=== PATIENT | male | born 1995 | race Caucasian/White ===

== ENCOUNTER 2018-03-26 19:24 | Emergency (ER) | payer OTHER ==
[2018-03-26 19:35] VITALS: BP 108/60; PULSE 92; TEMP 98.4; BMI 19.1
[2018-03-26] MEDS ORDERED: PSEUDOEPHEDRINE HCL 60 MG TABLET PO ONE (19:38)
[2018-03-26] MEDS ORDERED: IBUPROFEN 400 MG TABLET (FP) PO ONE (19:39)
--- NOTE | 2018-03-26 19:41 | PDOC ---
History of Present Illness - General History Source: Patient Exam Limitations: No Limitations - History of Present Illness Initial Comments: 03/26/18 19:41 The patient is a 22-year-old male, with no significant past medical history, who presents to the ED with one day of sore throat and nasal congestion. The patient denies having any fever or cough. He reports taking 2-500mg amoxicillin tablets that were left over from his father's prescription. The patient denies any neck pain or stiffness. He denies any chest pain or shortness of breath. He denies any headache. Allergies: No known allergies Surgical History: tonsillectomy <Sadie Peterson - Last Filed: 03/26/18 19:48> <Joshua Roberts - Last Filed: 03/27/18 06:30> - General Chief Complaint: Pain, Acute Stated Complaint: SORE THROAT Time Seen by Provider: 03/26/18 19:34 Past History <Sadie Peterson - Last Filed: 03/26/18 19:48> - Past Medical History COPD: No Other medical history: DENIES - Suicide/Smoking/Psychosocial Hx Smoking Status: No Smoking History: Never smoked Have you smoked in the past 12 months: No Number of Cigarettes Smoked Daily: 0 Information on smoking cessation initiated: No Hx Alcohol Use: No Drug/Substance Use Hx: No Substance Use Type: Marijuana <Joshua Roberts - Last Filed: 03/27/18 06:30> - Past Medical History Allergies/Adverse Reactions: Allergies Allergy/AdvReac Type Severity Reaction Status Date / Time No Known Allergies Allergy Verified 03/26/18 19:26 Home Medications: Ambulatory Orders No Home Medications 0 dose .ROUTE UTDICT 08/19/12 Review of Systems - Review of Systems Able to Perform ROS?: Yes Comments:: 03/26/18 19:42 GENERAL/CONSTITUTIONAL: No fever or chills. No weakness. HEAD, EYES, EARS, NOSE AND THROAT:(+)Sore throat, nasal congestion. No change in vision. No ear pain or discharge. CARDIOVASCULAR: No chest pain or shortness of breath. RESPIRATORY: No cough, wheezing, or hemoptysis. GASTROINTESTINAL: No nausea, vomiting, diarrhea or constipation. GENITOURINARY: No dysuria, frequency, or change in urination. MUSCULOSKELETAL: No joint or muscle swelling or pain. No neck or back pain. SKIN: No rash NEUROLOGIC: No headache, vertigo, loss of consciousness, or change in strength/ sensation. ENDOCRINE: No increased thirst. No abnormal weight change. HEMATOLOGIC/LYMPHATIC: No anemia, easy bleeding, or history of blood clots. ALLERGIC/IMMUNOLOGIC: No hives or skin allergy. <Sadie Peterson - Last Filed: 03/26/18 19:48> *Physical Exam - Vital Signs Last Vital Signs Temp Pulse Resp BP Pulse Ox 98.4 F 92 H 16 108/60 99 03/26/18 19:27 03/26/18 19:27 03/26/18 19:27 03/26/18 19:27 03/26/18 19:27 - Physical Exam Comments: 03/26/18 19:45 GENERAL: Awake, alert, and fully oriented, in no acute distress HEAD: No signs of trauma EYES: PERRLA, EOMI, sclera anicteric, conjunctiva clear ENT: (+)Tonsil absent, oropharynx mildly erythematous with no exudates, nasal turbinates were boggy. Auricles normal inspection, nares patent. Moist mucosa. NECK: Normal ROM, supple, no lymphadenopathy, JVD, or masses LUNGS: Breath sounds equal, clear to auscultation bilaterally. No wheezes, and no crackles HEART: Regular rate and rhythm, normal S1 and S2, no murmurs, rubs or gallops ABDOMEN: Soft, nontender, normoactive bowel sounds. No guarding, no rebound. No masses EXTREMITIES: Normal range of motion, no edema. No clubbing or cyanosis. No cords, erythema, or tenderness NEUROLOGICAL: Alert and oriented x 3. Moves all extremities. Face is symmetric. SKIN: Warm, Dry, normal turgor, no rashes or lesions noted <Sadie Peterson - Last Filed: 03/26/18 19:48> - Vital Signs Last Vital Signs Temp Pulse Resp BP Pulse Ox 98.4 F 92 H 16 108/60 99 03/26/18 19:27 03/26/18 19:27 03/26/18 19:27 03/26/18 19:27 03/26/18 19:27 <Joshua Roberts - Last Filed: 03/27/18 06:30> ED Treatment Course - Medications Given in the ED: ED Medications Discontinued Medications Generic Name Dose Route Start Last Admin Trade Name Freq PRN Reason Stop Dose Admin Ibuprofen 800 mg 03/26/18 19:39 03/26/18 19:39 Motrin - PO 03/26/18 19:40 800 mg NOW ONE Administration Pseudoephedrine HCl 60 mg 03/26/18 19:38 03/26/18 19:38 Sudafed - PO 03/26/18 19:39 60 mg NOW ONE Administration <Sadie Peterson - Last Filed: 03/26/18 19:48> Medical Decision Making - Medical Decision Making 03/27/18 06:29 viral rhinosinusitis nsaids, decongestants <Joshua Roberts - Last Filed: 03/27/18 06:30> *DC/Admit/Observation/Transfer - Attestations Scribe Attestion: 03/26/18 19:49 Documentation prepared by Sadie Peterson, acting as medical claims representative for Joshua Roberts MD. <Sadie Peterson - Last Filed: 03/26/18 19:48> <Joshua Roberts - Last Filed: 03/27/18 06:30> Diagnosis at time of Disposition: Sinusitis Qualifiers: Sinusitis location: unspecified location Chronicity: acute Recurrence: non- recurrent Qualified Code(s): J01.90 - Acute sinusitis, unspecified - Discharge Dispostion Disposition: HOME Condition at time of disposition: Stable - Patient Instructions Printed Discharge Instructions: DI for Viral Upper Respiratory Infection -- Adult Additional Instructions: Sudafed for congestion. Ibuprofen for pain. - Post Discharge Activity Forms/Work/School Notes: Back to Work
== END 2018-03-26 19:40 | disposition home or self-care (01) ==
LOC: FER 19:24
DX: J01.90 Acute sinusitis, unspecified (principal)
CPT/HCPCS: 99281-25